=== PATIENT | female | born 1995 | race Caucasian/White ===

== ENCOUNTER 2019-08-26 14:04 | Emergency (ER) | payer MEDICARE ==
[~2019-08-26] VITALS: Ht 162.6 cm; Wt 65.7 kg
[2019-08-26 14:16] VITALS: BP 96/57
[2019-08-26] MEDS ORDERED: HYDR-3686 PO (15:56)
== END 2019-08-26 16:17 | disposition home or self-care (01) ==
LOC: ER 14:05
DX: R51 Headache (principal); F32.9 Major depressive disorder, single episode, unspecified; F41.9 Anxiety disorder, unspecified
CPT/HCPCS: 99283

== ENCOUNTER 2019-08-27 21:20 | Emergency (ER) | payer MEDICARE ==
[~2019-08-27] VITALS: Ht 162.6 cm; Wt 68.0 kg
[~2019-08-27 21:20] MED LIST: HYDR-3686 PO
[2019-08-28] LABS: URINE HCG NEGATIVE (NEG)
--- NOTE | 2019-08-28 00:04 | NUR ---
optical lab technician in room 17, mechatronics technologist doing clothing sheet
--- NOTE | 2019-08-28 00:06 | NUR ---
pt remains calm and cooperative, will be going room 27, report given to RN
[2019-08-28 00:13] LABS: BASOPHILS % (AUTO) 0.7 % (0-1); EOSINOPHILS # (AUTO) 0.1 X10'3 (0-0.9); EOSINOPHILS % (AUTO) 1.4 % (0-6); HEMATOCRIT 39.7 % (35.0-45.0); HEMOGLOBIN 13.2 g/dl (12.0-16.0); LYMPHOCYTES # (AUTO) 1.8 X10'3 (1.1-4.8); LYMPHOCYTES % (AUTO) 37.5 % (21-51); MEAN CORPUSCULAR HEMOGLOBIN 28.3 PG (27.0-31.0); MEAN CORPUSCULAR HGB CONC 33.4 g/dL (33.0-36.5); MEAN CORPUSCULAR VOLUME 84.9 FL (78-98); MEAN PLATELET VOLUME 9.6 FL (7.4-10.4); MONOCYTES # (AUTO) 0.5 X10'3 (0-0.9); MONOCYTES % (AUTO) 10.3 % (2-12); NEUTROPHILS # (AUTO) 2.3 X10'3 (1.8-7.7); NEUTROPHILS % (AUTO) 50.1 % (42-75); PLATELET COUNT 224 X10'3 (140-440); RED BLOOD COUNT 4.67 X10'6 (4.20-5.60); RED CELL DISTRIBUTION WIDTH 15.6 % (11.5-14.5); WHITE BLOOD COUNT 4.7 X10'3 (4.5-11.0)
[2019-08-28 00:14] LABS: URINE AMPHETAMINE SCREEN NEGATIVE (Neg); URINE BARBITUATE SCREEN NEGATIVE (Neg); URINE BENZODIAZEPINES SCREEN NEGATIVE (Neg); URINE CANNABINOID SCREEN NEGATIVE (Neg); URINE COCAINE SCREEN NEGATIVE (Neg); URINE METHADONE SCREEN NEGATIVE (Neg); URINE OPIATE SCREEN NEGATIVE (Neg); URINE PHENCYCLIDINE SCREEN NEGATIVE (Neg)
[2019-08-28 00:25] LABS: ALANINE AMINOTRANSFERASE 22 U/L (12-78); ALBUMIN/GLOBULIN RATIO 1.2 (1.1-1.5); ALKALINE PHOSPHATASE 45 IU/L (46-116); ANION GAP 6 (8-16); ASPARTATE AMINO TRANSFERASE 26 U/L (10-37); BILIRUBIN,TOTAL 0.4 MG/DL (0.1-1.0); BLOOD UREA NITROGEN 27 MG/DL (7-18); BUN/CREATININE RATIO 31.4 (6.6-38.0); CHLORIDE 105 MMOL/L (99-107); CREATININE 0.86 MG/DL (0.40-0.90); GLUCOSE 88 MG/DL (70-104); POTASSIUM 3.2 MMOL/L (3.5-5.1); SODIUM 142 MMOL/L (135-145); TOTAL CARBON DIOXIDE 30.8 MMOL/L (24-32); TOTAL PROTEIN 7.4 G/DL (6.4-8.2); eGFR 80 ML/MIN
[2019-08-28 00:34] LABS: ETHANOL < 0.010 GM/DL (0.0-0.010)
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
--- NOTE | 2019-08-28 04:25 | NUR ---
PATIENT'S PACKET/[id number] FAXED TO [facility].
--- NOTE | 2019-08-28 05:39 | NUR ---
PT SLEPT WELL MOST OF THE NIGHT SINCE COMING TO OVERFLOW. SHE BRUSHED HER TEETCH AND WASHED HER FACE AND WENT TO BED AT APPROXIMATELY 0130. SHE HAS NO OTHER REQUEST OR CONCERNS AT THIS TIME.
--- NOTE | 2019-08-28 06:30 | NUR ---
RECEIVED REPORT FROM ARCADIO PAL, PT IS SLEEPING AT THIS TIME, NO S/S OF DISTRESS, DISCOMFORT OR AGITATION, RESPIRATIONS SPONTANEOUS, EVEN AND UNLABORED, PT IN LINE OF SITE OF NURSES STATION, WILL CONTINUE TO MONITOR.
--- NOTE | 2019-08-28 07:06 | NUR ---
DR RAM AT BEDSIDE FOR RE-EVALUATION
--- NOTE | 2019-08-28 08:18 | NUR ---
BREAKFAST TRAY HAS ARRIVED AND PLACED AT BEDSIDE, PT AMBULATORY TO BATHROOM WITH STEADY GAIT TO BRUSH TEETH
--- NOTE | 2019-08-28 08:58 | NUR ---
GREG WITH BRAXTON AT BEDSIDE FOR EVALUATION NOW
--- NOTE | 2019-08-28 11:05 | NUR ---
PT IS SLEEPING, RESPIRATIONS SPONTANEOUS, EVEN AND UNLABORED, NO S/S OF DISTRESS DISCOMFORT OR AGITATION, PT IN LINE OF SITE OF NURSES STATION, WILL CONTINUE TO MONITOR
--- NOTE | 2019-08-28 14:05 | NUR ---
RECEIVED CALL FROM ROXANNE AT [facility], GAVE REPORT AND HISTORY TO PRESENT TO HER PROVIDER.
--- NOTE | 2019-08-28 14:49 | NUR ---
PT ACCEPTED AT [facility] @ 14:15. DR. JOHN ACCEPTED PT. PROFESSOR OF INDUSTRIAL TECHNOLOGY AT 1800. ASHER NON-MEDICAL STAFF CALLED AND GAVE THE ABOVE INFO.
[2019-08-28 17:52] VITALS: BP 95/49
--- NOTE | 2019-08-28 17:54 | NUR ---
PT TOOK A BED BATH AND SHAMPOOED HER HAIR. GETTING READY TO BE TRANSFERRED TO [facility].
--- NOTE | 2019-08-28 18:25 | NUR ---
[facility] RIDE HER TO PLATFORM SUPERVISOR PT. PT BEING TRANSFERRED TO [facility] IN [place]. PT GETTING DRESSED. BELONGINGS IN BAG AT BEDSIDE.
== END 2019-08-28 18:31 ==
LOC: ER 21:40
DX: R45.851 Suicidal ideations (principal); F31.9 Bipolar disorder, unspecified; R44.0 Auditory hallucinations; Z79.899 Other long term (current) drug therapy
CPT/HCPCS: 36415; 80053; 80305; 80320; 81025; 84443; 85025; 99285

== ENCOUNTER 2019-11-04 16:48 | Emergency (ER) | payer MEDICARE ==
[~2019-11-04] VITALS: Ht 162.6 cm; Wt 62.6 kg
--- NOTE | 2019-11-04 17:59 | NUR ---
PATIENT STATES SHE IS HAVING INTENSE MOODS AND FEELING ANXIETY. FEELING EMOTIONAL AND OVERWHELMED WITH EVERYTHING AROUND HER. ROOMMATES ARE SUPPORTIVE.
[2019-11-04 19:05] LABS: URINE HCG NEGATIVE (NEG)
[2019-11-04 19:17] LABS: URINE AMPHETAMINE SCREEN NEGATIVE (Neg); URINE BARBITUATE SCREEN NEGATIVE (Neg); URINE BENZODIAZEPINES SCREEN NEGATIVE (Neg); URINE CANNABINOID SCREEN NEGATIVE (Neg); URINE COCAINE SCREEN NEGATIVE (Neg); URINE METHADONE SCREEN NEGATIVE (Neg); URINE OPIATE SCREEN NEGATIVE (Neg); URINE PHENCYCLIDINE SCREEN NEGATIVE (Neg)
[2019-11-04 19:17] LABS: HEMOGLOBIN 13.5 g/dl (12.0-16.0); MEAN PLATELET VOLUME 9.4 FL (7.4-10.4); WHITE BLOOD COUNT 5.1 X10'3 (4.5-11.0)
[2019-11-04 19:19] LABS: BASOPHILS % (AUTO) 0.6 % (0-1); EOSINOPHILS % (AUTO) 0.4 % (0-6); HEMATOCRIT 40.5 % (35.0-45.0); LYMPHOCYTES # (AUTO) 1.3 X10'3 (1.1-4.8); LYMPHOCYTES % (AUTO) 26.3 % (21-51); MEAN CORPUSCULAR HEMOGLOBIN 29.4 PG (27.0-31.0); MEAN CORPUSCULAR HGB CONC 33.3 g/dL (33.0-36.5); MEAN CORPUSCULAR VOLUME 88.1 FL (78-98); MONOCYTES # (AUTO) 0.4 X10'3 (0-0.9); MONOCYTES % (AUTO) 8.2 % (2-12); NEUTROPHILS # (AUTO) 3.3 X10'3 (1.8-7.7); NEUTROPHILS % (AUTO) 64.5 % (42-75); PLATELET COUNT 190 X10'3 (140-440); RED BLOOD COUNT 4.59 X10'6 (4.20-5.60)
[2019-11-04 19:32] LABS: ALANINE AMINOTRANSFERASE 17 U/L (12-78); ALBUMIN 4.1 G/DL (3.4-5.0); ALBUMIN/GLOBULIN RATIO 1.4 (1.1-1.5); ALKALINE PHOSPHATASE 53 IU/L (46-116); ANION GAP 4 (8-16); ASPARTATE AMINO TRANSFERASE 20 U/L (10-37); BILIRUBIN,TOTAL 0.2 MG/DL (0.1-1.0); BLOOD UREA NITROGEN 14 MG/DL (7-18); BUN/CREATININE RATIO 16.3 (6.6-38.0); CHLORIDE 105 MMOL/L (99-107); CREATININE 0.86 MG/DL (0.40-0.90); ETHANOL < 0.010 GM/DL (0.0-0.010); GLUCOSE 91 MG/DL (70-104); SODIUM 142 MMOL/L (135-145); TOTAL CARBON DIOXIDE 33.3 MMOL/L (24-32); TOTAL PROTEIN 7.1 G/DL (6.4-8.2); eGFR 80 ML/MIN
--- NOTE | 2019-11-04 19:43 | NUR ---
Faxed paperwork to [facility]
[2019-11-04] MEDS ORDERED: RISP3TAB3 PO (20:00)
[2019-11-04] MEDS ORDERED: CARB200T PO ×2 (20:00)
[2019-11-04 20:10] LABS: PLATELET ESTIMATE NORMAL; TOTAL CELLS COUNTED 100
[2019-11-04] MEDS ORDERED: carBAMazepine 100mg chewable tablet PO SCH ×2 (21:00→21:01)
[2019-11-04] MEDS ORDERED: risperiDONE 0.5mg tablet PO SCH (21:00)
[2019-11-04] MEDS ORDERED: risperiDONE 2mg tablet PO SCH (21:01)
[2019-11-04] MEDS ORDERED: carBAMazepine 100mg chewable tablet PO ONE (21:25)
--- NOTE | 2019-11-04 21:41 | NUR ---
Received patient to [facility]. Patient presents as depressed, with flat affect. Patient reports having intense thoughts "everything is loud." "I don't feel like myself." Patient denies SI. Patient report AH especially at night "it's like chatter in my head, not voice." Gettting up and walking around helps distract the voices. Patient states she feels safer since she came to ER. Patient reports a hospital visit in August for SI and self harm thoughts. Patient was transferred to [facility] in [place]. Patient is waiting for [facility] to come in and do initial assessment.
[2019-11-04 22:11] VITALS: BP 99/58
--- NOTE | 2019-11-04 22:18 | NUR ---
Discharge Note: Reviewed discharge instructions with patient. Patient will follow up with Dr. Han tomorrow. Patient ambulated independently out to vehicle accompanied by RN. Patient denies SI and is feeling safe to go home.
[2019-11-05] MEDS ORDERED: carBAMazepine 100mg chewable tablet PO SCH (07:30)
== END 2019-11-04 22:19 | disposition home or self-care (01) ==
LOC: ER 16:48
DX: F31.9 Bipolar disorder, unspecified (principal); R45.851 Suicidal ideations; Z79.899 Other long term (current) drug therapy
CPT/HCPCS: 36415; 80053; 80305; 80320; 81025; 85025; 99284; 99285

== ENCOUNTER 2020-01-01 13:12 | Emergency (ER) | payer MEDICARE ==
[~2020-01-01] VITALS: Ht 162.6 cm; Wt 65.8 kg
[~2020-01-01 13:12] MED LIST changes: +CARB200T PO; -HYDR-3686 PO; +RISP3TAB3 PO
[2020-01-01 13:16] VITALS: BP 97/56
--- NOTE | 2020-01-01 14:02 | NUR ---
PT IS BEING EVALUATED BY Ignacio RIVERA, PT IS 24 YO C/O FEELING DIZZY, CONFUSED, FEELS LIKE "SOMETHING IS DRAGGING ME DOWN", PT FEELS THE SX ARE A REACTION TO RESPERIDOL SHE STARTED IN AUGUST AND REMERON STARTED IN NOVEMBER, UNABLE TO FOLLOW UP WITH [facility] DUE TO INSURANCE PROBLEMS, PT IS CURRENTLY LOOKING TO ESTABLISH WITH DIFFERENT PROVIDER
--- NOTE | 2020-01-01 14:46 | NUR ---
in preparation for discharge pt reports that she is concerned about getting follow up care with re[facility] will. alondra aguilar notified. pt requests to be admitted to be taken off meds. pa in room now to discuss care with pt.
== END 2020-01-01 15:08 | disposition home or self-care (01) ==
LOC: ER 13:13
DX: R53.83 Other fatigue (principal); R40.0 Somnolence; F31.9 Bipolar disorder, unspecified
CPT/HCPCS: 99281